=== PATIENT | male | born 1965 | race Caucasian/White ===

== ENCOUNTER 2017-02-27 23:41 | Emergency (ER) | payer SELFPAY ==
[2017-02-28] MEDS: ONDANSETRON (ODT) 4 MG TAB ODT (02:39)
[2017-02-28] MEDS: HYDROmorphONE 2 MG/ML SYG IM (02:39)
== END 2017-02-28 05:21 | disposition home or self-care (01) ==
LOC: FTE 23:41
DX: M25.562 Pain in left knee (principal); F17.210 Nicotine dependence, cigarettes, uncomplicated
CPT/HCPCS: 73562; 96372; 99284-25